=== PATIENT | female | born 1950 | race Caucasian/White ===

== ENCOUNTER 2022-07-07 17:32 | Emergency (ER) | payer BC ==
[~2022-07-07] VITALS: Ht 152.4 cm; Wt 75.0 kg
[2022-07-07] MEDS ORDERED: IBUPROFEN 600MG TABLET PO ONE (18:30)
[2022-07-07 18:52] VITALS: BP 169/82
== END 2022-07-07 21:15 | disposition home or self-care (01) ==
LOC: ER 17:32
DX: S03.2XXA Dislocation of tooth, initial encounter (principal); S86.811A Strain of other muscle(s) and tendon(s) at lower leg level, right leg, initial encounter; R51.9 Headache, unspecified; E11.9 Type 2 diabetes mellitus without complications; V03.90XA Pedestrian on foot injured in collision with car, pick-up truck or van, unspecified whether traffic or nontraffic accident, initial encounter; Y93.89 Activity, other specified; Y92.488 Other paved roadways as the place of occurrence of the external cause; Z88.0 Allergy status to penicillin
CPT/HCPCS: 70486; 73564; 99284